=== PATIENT | female | born 1975 ===

== ENCOUNTER 2024-03-01 14:38 | Outpatient (CLI) | payer OTHER | END 2024-03-01 14:39 | disposition home or self-care (01) | LOC: SONOGRAMA 14:38 | PROVIDERS: ATTEND Pathology Anatomic Pathology & Clinical Pathology | DX: E04.2 Nontoxic multinodular goiter (principal) ==

== ENCOUNTER 2024-10-28 13:24 | Outpatient (CLI) | payer OTHER | END 2024-10-28 13:31 | disposition home or self-care (01) | LOC: SONOGRAMA 13:24 | PROVIDERS: ATTEND Pathology Anatomic Pathology & Clinical Pathology | DX: E04.2 Nontoxic multinodular goiter (principal) ==